=== PATIENT | male | born 1980 | race Caucasian/White ===

== ENCOUNTER 2017-05-30 22:37 | Emergency (ER) | payer OTHER ==
[~2017-05-30] VITALS: Ht 180.3 cm; Wt 88.5 kg
--- NOTE | 2017-05-30 23:35 | NUR ---
TO BED 16 A 36 YO MALE PATIENT BIB FROM HOME S/P FALL DOWN STAIRS, PER +LOC FOR 15 MIN C/O NECK/R SHOULDER/R RIBS/R HIP/R ELBOW. DENIES N/V. PATIENT IS AOX4. VSS. BREATHING EVEN AND UNLABORED. PROPER BODY ALIGNMENT MAINTAINED. COMFORT MEASURES RENDERED. WILL MONITOR.
--- NOTE | 2017-05-31 02:38 | NUR ---
Patient discharged to home in stable condition. Written and verbal after care instructions given. Patient verbalizes understanding of instruction. Patient is ambulatory with steady gait, accompanied by . vss. nad noted. No further complaints.
[2017-05-31 02:39] VITALS: BP 125/70
== END 2017-05-31 02:40 | disposition home or self-care (01) ==
LOC: ER 22:37
DX: S22.31XA Fracture of one rib, right side, initial encounter for closed fracture (principal); S13.4XXA Sprain of ligaments of cervical spine, initial encounter; S70.01XA Contusion of right hip, initial encounter; S09.8XXA Other specified injuries of head, initial encounter; W10.8XXA Fall (on) (from) other stairs and steps, initial encounter; Y93.89 Activity, other specified; Y92.89 Other specified places as the place of occurrence of the external cause; Y99.8 Other external cause status
CPT/HCPCS: 70450-TC; 71100-TC; 72125-TC; 73030-TC; 73502; A4606; L0172; Z7610